=== PATIENT | male | born 1980 | race Caucasian/White ===

== ENCOUNTER 2016-09-20 19:12 | Emergency (ER) | payer OTHER ==
[~2016-09-20] VITALS: Ht 188 cm; Wt 87.0 kg
[~2016-09-20 19:12] MED LIST: CLIN150 PO; LORTA5 PO
[2016-09-20 19:15] VITALS: BP 126/91; PULSE 60; RESP 16; TEMP 97.6; O2SAT 100
[2016-09-20] MEDS ORDERED: KETOROLAC TROMETHAMINE 60 MG/2 ML (IM) VIAL IM ONE (19:45)
[2016-09-20] MEDS ORDERED: AUGM875T3 PO (19:49)
--- NOTE | 2016-09-20 19:50 | PD ---
HPI Chief Complaint: Oral / Dental Pain or Problem Time Seen by Provider: 19:46 Travel History International Travel<30 days: No Contact w/Intl Traveler<30days: No Traveled to known affect area: No History of Present Illness HPI 36-year-old male since emergency department for evaluation of right lower dental pain and facial swelling. Patient reports history of multiple dental abscesses. He reports this pain is similar to those. He reports pain in the right lower jaw, nonradiating, no aggravating or alleviating factors, severity 7 out of 10. He denies fever or chills. PFSH Past Medical History Medical History: Denies Significant Hx Diminished Hearing: No ?: Not Social History Alcohol Use: Yes (BEER DAILY) Tobacco Use: No Substance Use: No Allergies-Medications (Allergen,Severity, Reaction): Coded Allergies: *MDRO Multi-Drug Resistant Organism (Unverified Adverse Reaction, Unknown , 09/20/16) MRSA Reported Meds & Prescriptions Reported Meds & Active Scripts Active No Active Prescriptions or Reported Medications Review of Systems Except as stated in HPI: all other systems reviewed are Neg Physical Exam Narrative GENERAL: Well-nourished, well-developed patient. SKIN: Focused skin assessment warm/dry. HEAD: Normocephalic. MOUTH: Widespread dental decay tooth number 29-32 decay and rotted with surrounding gum erythema EYES: No scleral icterus. No injection or drainage. NECK: Supple, trachea midline. No JVD or lymphadenopathy. CARDIOVASCULAR: Regular rate and rhythm without murmurs, gallops, or rubs. RESPIRATORY: Breath sounds equal bilaterally. No accessory muscle use. Data Data Last Documented VS Vital Signs Date Time Temp Pulse Resp B/P Pulse Ox O2 Delivery O2 Flow Rate FiO2 09/20/16 19:15 97.6 60 16 126/91 100 Orders Ketorolac Inj (Toradol Inj) (09/20/16 19:45) [facility] Medical Decision Making Medical Screen Exam Complete: Yes Emergency Medical Condition: Yes Differential Diagnosis Dental abscess, periodontal disease, dental caries Narrative Course 36-year-old male with chief complaint of right lower dental pain and facial swelling. On exam patient has wide spread dental decay and gum erythema with swelling at the site of the pain. Patient be treated for dental abscess. Diagnosis Primary Impression: Dental abscess Referrals: Primary Care Physician Scripts Amoxicillin-Clavulanate (Augmentin)875-125 Mg Tab1 Tab PO BID #[id number] TAB Prov:Lucy Warren 09/20/16 Disposition: 01 DISCHARGE HOME Condition: Stable Lucy Warren Sep 20, 2016 19:50
== END 2016-09-20 19:57 | disposition home or self-care (01) ==
LOC: PHEFT 19:12
DX: K04.7 Periapical abscess without sinus (principal)
CPT/HCPCS: 99283